=== PATIENT | female | born 1975 | race Asian ===

== ENCOUNTER 2023-05-29 11:30 | Emergency (ER) | payer MEDICAID ==
[~2023-05-29] VITALS: Ht 167.6 cm; Wt 46.3 kg
[2023-05-29 12:30] VITALS: BP 107/72; TEMP 98.4; O2SAT 100
== END 2023-05-29 14:08 | disposition home or self-care (01) ==
LOC: ER 11:30
DX: M54.12 Radiculopathy, cervical region (principal); M48.02 Spinal stenosis, cervical region
CPT/HCPCS: 72125-TC